=== PATIENT | male | born 2000 | race Hispanic/Latino ===

== ENCOUNTER 2020-11-17 06:22 | Emergency (ER) | payer BC ==
[~2020-11-17] VITALS: Ht 177.8 cm; Wt 124.7 kg
[2020-11-17] MEDS ORDERED: PROPOFOL IV EMULSION 10 MG/ML 20 ML VIAL IV STA (06:32)
[2020-11-17] MEDS ORDERED: KETAMINE HCL INJ 50 MG/ML 10 ML VIAL IV STA (06:32)
[2020-11-17] MEDS ORDERED: KETAMINE HCL INJ 50 MG/ML 10 ML VIAL ONE (06:40)
[2020-11-17] MEDS ORDERED: PROPOFOL IV EMULSION 10 MG/ML 20 ML VIAL ONE (06:40)
[2020-11-17 07:39] VITALS: BP 147/71
== END 2020-11-17 07:38 | disposition home or self-care (01) ==
LOC: FSED 06:35
DX: S43.085A Other dislocation of left shoulder joint, initial encounter (principal); W19.XXXA Unspecified fall, initial encounter
CPT/HCPCS: 23650; 73020; 73030; 96374; 96375; 99284; J2704